=== PATIENT | female | born 1940 | race Caucasian/White ===

== ENCOUNTER 2021-08-15 08:27 | Day surgery (SDC) | payer MEDICARE, BC ==
[2021-08-11 16:52] LABS: BASOPHILS % (AUTO) 0.9 % (0-1); EOSINOPHILS % (AUTO) 1.1 % (0-6); LYMPHOCYTES # (AUTO) 1.4 X10'3 (1.1-4.8); MEAN CORPUSCULAR HEMOGLOBIN 31.4 PG (27.0-31.0); MEAN CORPUSCULAR HGB CONC 33.6 g/dL (33.0-36.5); MEAN CORPUSCULAR VOLUME 93.2 FL (78-98); MEAN PLATELET VOLUME 8.4 FL (7.4-10.4); MONOCYTES # (AUTO) 0.5 X10'3 (0-0.9); MONOCYTES % (AUTO) 12.3 % (2-12); NEUTROPHILS # (AUTO) 2.1 X10'3 (1.8-7.7); NEUTROPHILS % (AUTO) 50.7 % (42-75); PRE OP HEMATOCRIT 36.8 % (35.0-45.0); PRE OP HEMOGLOBIN 12.4 g/dL (12.0-16.0); PRE OP PLATELET COUNT 144 X10'3 (140-440); RED BLOOD COUNT 3.95 X10'6 (4.20-5.60); RED CELL DISTRIBUTION WIDTH 13.5 % (11.5-14.5)
[2021-08-11 17:06] LABS: ALBUMIN 3.4 G/DL (3.4-5.0); ALBUMIN/GLOBULIN RATIO 0.9 (1.1-1.5); ALKALINE PHOSPHATASE 67 IU/L (46-116); BLOOD UREA NITROGEN 28 MG/DL (7-18); CALCIUM 9.6 MG/DL (8.5-10.1); CHLORIDE 102 MMOL/L (99-107); CREATININE 1.12 MG/DL (0.40-0.90); PRE OP ALT 26 U/L (30-65); PRE OP ANION GAP 6 (8-16); PRE OP AST 35 U/L (10-37); PRE OP BILIRUB, TOTAL 0.7 MG/DL (0.0-1.0); PRE OP GLUCOSE 112 MG/DL (70-104); PRE OP POTASSIUM 3.7 MMOL/L (3.4-5.1); PRE OP SODIUM 137 MMOL/L (135-145); TOTAL CARBON DIOXIDE 29.5 MMOL/L (24-32); TOTAL PROTEIN 7.4 G/DL (6.4-8.2); eGFR 47 ML/MIN
[2021-08-15] VITALS (16 sets, daily range): BP systolic 90–142; BP diastolic 52–89
[~2021-08-15] VITALS: Ht 152.4 cm; Wt 43.1 kg
[2021-08-15 07:18] LABS: PARTIAL THROMBOPLASTIN TIME 28 SECONDS (22-32)
--- NOTE | 2021-08-15 08:20 | NUR ---
ADMITTED TO PACU FROM OR ACCOMPANIED BY ANESTHESIA. INTIAL PHYSICAL ASSESSMENT DONE AND RECORDED. REPORT RECEIVED FROM ANESTHESIA.
[~2021-08-15 08:27] MED LIST: AMIT25TA9 PO; BUPIVAcaine/PF 2.5 mg/ml (0.25%) 30ml vial ONE; DOCUMENT DATE & TIME OF BETA-BLOCKER PO ONE; FENO134C PO; FURO20TA4 PO; LAN0.125T PO; METO-411 PO; PRAV10TA39 PO; SPIR25TA5 PO; VENL100T4 PO; WARF-55 PO; ceFAZolin 2gm in dextrose, iso 50 ML IV ONE; famotidine 20mg tablet PO ONE; fentaNYL/PF 50MCG/1 ML 2ML syringe ONE; meperidine/PF 25mg/ml syringe IV PRN; midazolam 1 mg/ML 2ml injection ONE; morphine 2 MG/ML inj. syringe IV PRN; morphine 4 MG/ML inj SYRINge IV PRN; ondansetron/PF 4mg/2ml inj IV PRN; proCHLORperazine 10 MG/2 ml inj IV PRN; ringers solution, lacted 1,000 ML IV SCH
--- NOTE | 2021-08-15 09:50 | NUR ---
ASSUMED CARE OF PT, SHE IS RESTING COMFORTABLY, NO C/O. DRSG TO LEFT ANKLE/FOOT CDI W/ICE PACK IN PLACE. VSS. PT DOZING ON AND OFF, PTS DAUGHTER IN AT BEDSIDE. Addendum: 08/15/21 at 1106 by Aleyda Rodriguez RN Amended: Links added.
--- NOTE | 2021-08-15 10:19 | NUR ---
PT IS STABLE AND ADEQUATELY RECOVERED FROM ANESTHESIA. PT HAS STABLE AIRWAY PATENCY, RESPIRATORY FUNCTION TO INCLUDE RESPIRATORY RATE AND O2 SAT. HEART RATE, BLOOD PRESSURE STABLE AND HYDRATION ADEQUATE. MENTAL STATUS IS APPROPRIATE. PAIN AND NAUSEA CONTROLLED. REFER TO PACU SPREADSHEET FOR VITAL SIGNS. DUE TO SPINAL ANESTHESIA LEVEL AND NEED FOR STAY UNTIL 1200N, TRANSFERRED TO PAS UNIT TO AWAIT COMPLETE RESOLVE OF SPINAL ALONG WITH NEED TO VOID. DAUGHTER VANDANA CONTACTED GIVEN DISCHARGE INSTRUCTIONS VIA PHONE, UPDATED ON CONDITION AND ROOM IN PAS.
--- NOTE | 2021-08-15 12:20 | NUR ---
PT TOLERATING ORAL FOOD AND LIQUIDS, UP AND ABLE TO AMBULATE SAFELY W/WALKER TO BATHROOM X 2 FOR VOIDS. D/C INSTRUCTIONS GIVEN AND GONE OVER W/PT AND PTS DAUGHTER WHO VERBALIZED UNDERSTANDING. PT D/CD TO HOME VIA W/C TO PRIVATE VEHICLE W/O INCIDENT. Addendum: 08/15/21 at 1316 by Aleyda Rodriguez RN Amended: Links added.
== END 2021-08-15 12:20 | disposition home or self-care (01) ==
LOC: PAS 08:27
PROVIDERS: ATTEND Orthopaedic Surgery
DX: T84.84XA Pain due to internal orthopedic prosthetic devices, implants and grafts, initial encounter (principal); F41.9 Anxiety disorder, unspecified; F32.9 Major depressive disorder, single episode, unspecified; M19.90 Unspecified osteoarthritis, unspecified site; M41.9 Scoliosis, unspecified; I10 Essential (primary) hypertension; I25.2 Old myocardial infarction; I25.10 Atherosclerotic heart disease of native coronary artery without angina pectoris; I48.91 Unspecified atrial fibrillation; Z95.5 Presence of coronary angioplasty implant and graft; Z86.14 Personal history of Methicillin resistant Staphylococcus aureus infection; Z20.822 Contact with and (suspected) exposure to COVID-19; Z79.01 Long term (current) use of anticoagulants; Z79.899 Other long term (current) drug therapy; Z90.710 Acquired absence of both cervix and uterus; Z98.890 Other specified postprocedural states; Z88.8 Allergy status to other drugs, medicaments and biological substances; Z88.0 Allergy status to penicillin; Z88.5 Allergy status to narcotic agent; Z82.49 Family history of ischemic heart disease and other diseases of the circulatory system; Z82.3 Family history of stroke; Z80.9 Family history of malignant neoplasm, unspecified; Y83.8 Other surgical procedures as the cause of abnormal reaction of the patient, or of later complication, without mention of misadventure at the time of the procedure; Y92.89 Other specified places as the place of occurrence of the external cause
CPT/HCPCS: 20680; 36415; 80053; 82948; 85025; 85610; 85730; J2250; J3010; J3490; J7120; U0003; U0005; Z7506; Z7512; A4215; A4618; A6449; A7000